=== PATIENT | female | born 1935 | race African-American/Black ===

== ENCOUNTER 2020-12-05 21:01 | Inpatient (IN) | payer SELFPAY ==
--- NOTE | ~2020-12-05 | XR_ITS ---
XR chest 1V DATE: 12/05/2020 22:25 INDICATION: Fever. Weakness for 2 days. TECHNIQUE: AP chest COMPARISON: None FINDINGS: Cardiomegaly. There is left perihilar and lower lung infiltrate and right basilar infiltrat e or atelectasis. There is mild elevation of the right leaf of the diaphragm. No pleural effusion is evident. No pneumo thorax. Diffuse osteopenia. There is bilateral excretion of intravenous contrast material by the kidneys. IMPRESSION: Left perihilar and bilateral lower lung infiltrates Reviewed, dictated and finalized at location A.
--- NOTE | ~2020-12-05 | CT_ITS ---
EXAMINATION: CT chest abdomen pelvis wo con DATE: 12/09/2020 18:17 INDICATION: Costovertebral angle pain. TECHNIQUE: Computed tomography (CT) of the chest, abdomen, and pelvis was performed without intraveno us contrast. Automated exposure control and iterative reconstruction technique were employed. The dos e-length product was 1305.21 mGy-cm. COMPARISON: CT abdomen and pelvis 12/05/2020 FINDINGS: CHEST CT: The lungs demonstrate mild atelectasis. Motion artifact mildly decreases sensitivity. There is a trac e left pleural effusion. Cardiomegaly is noted. There are calcifications of aortic valve. No pericard ial effusion. There is mild thoracic spondylosis. There is mild chronic height loss of T12 vertebral body. ABDOMEN/PELVIS CT: There is an 8 mm cyst in the liver. The gallbladder, spleen, pancreas, adrenal glands, and kidneys ar e normal. There is no urolithiasis. There are no dilated loops of bowel. The appendix is normal. The stomach is distended. There are no pathologically enlarged lymph nodes. There is no free intraperiton eal fluid. There is mild lumbar spondylosis. IMPRESSION: 1. Cardiomegaly. Reviewed, dictated and finalized at location A. IMPRESSION: 1. Cardiomegaly.
--- NOTE | ~2020-12-05 | CT_ITS ---
EXAMINATION: CT abdomen pelvis w con DATE: 12/05/2020 22:17 INDICATION: Generalized abdominal pain. Fever. TECHNIQUE: Computed tomography (CT) of the abdomen and pelvis was performed with 100 cc Omnipaque 350 intravenous contrast. Automated exposure control and iterative reconstruction technique were employe d. Exam dose: 1058.26 mGy-cm total exam DLP. COMPARISON: None. FINDINGS: There is mild discoid atelectasis or scarring at the base of the lingula and in the middle lobe. The Cardiomegaly. No pericardial or pleural effusion. The liver, gallbladder, spleen, pancreas, bile ducts and pancreatic duct and adrenal glands as well a s the kidneys are unremarkable. The urinary bladder is unremarkable. Uterus and adnexal areas are unr emarkable. There is atherosclerotic calcification but normal caliber of the abdominal aorta. No intraperitoneal or retroperitoneal or pelvic mass lesion or adenopathy or ascites. Occasional small bowel air-fluid levels within the fluid distended small bowel segments without dilat ation. Consider enteritis, mild adynamic ileus. No bowel wall thickening, pneumatosis or intraperiton eal free air. Osteitis pubis. Diffuse osteopenia. Mild compression fracture of T12 IMPRESSION: Cardiomegaly Nondilated fluid containing small bowel and occasional small bowel air-fluid levels, which may be sec ondary to enteritis or mild adynamic ileus; no bowel obstruction or free air is detected. Consider co rrelation with serum lactic acid to exclude ischemic bowel. Reviewed, dictated and finalized at Location [facility]. Reviewed, dictated and finalized at location A. IMPRESSION: Cardiomegaly Nondilated fluid containing small bowel and occasional small bowel air-fluid le vels, which may be secondary to enteritis or mild adynamic ileus; no bowel obst ruction or free air is detected. Consider correlation with serum lactic acid to exclude ischemic bowel.
--- NOTE | ~2020-12-05 | CT_ITS ---
EXAMINATION: CT brain wo con DATE: 12/05/2020 22:14 INDICATION: Mental status change. Generalized paresis. TECHNIQUE: Computed tomography (CT) of the head was performed without intravenous contrast. The mA wa s adjusted according to patient size. Iterative reconstruction technique was employed. Exam dose: 52 9.67 mGy-cm total exam DLP. COMPARISON: None FINDINGS: Bilateral carotid siphon internal carotid artery calcifications. There is nonspecific diminished attenuation of the subcortical and periventricular cerebral white mat ter, likely due to chronic small vessel ischemic changes. There is central and cortical cerebral and cerebellar atrophy. No intracranial mass lesion or hemorrhage, midline shift or mass effect effect. No cerebrovascular ac cident is evident. No subdural or epidural hematoma is detected. Included paranasal sinuses and mastoid air cells are unremarkable. No fracture or bone destruction of the cranial vault. IMPRESSION: Cerebral atherosclerosis and chronic small vessel ischemic changes of cerebral white mat ter Cerebral and cerebellar atrophy No acute intracranial finding Reviewed, dictated and finalized at Location A. Reviewed, dictated and finalized at location A. IMPRESSION: Cerebral atherosclerosis and chronic small vessel ischemic changes of cerebral white matter Cerebral and cerebellar atrophy No acute intracranial finding
[2020-12-05 21:13] VITALS: BP 145/85; PULSE 143; RESP 24; TEMP 38.3; O2SAT 94
--- NOTE | 2020-12-05 21:16 | ECG_ITS ---
Measurements Intervals [place] Rate: 144 P: 50 [place]: 139 QRS: 11 QRSD: 92 T: 64 QT: 339 QTc: 526 Interpretive Statements SINUS TACHYCARDIA, POSSIBLE ATRIAL FLUTTER BASELINE ARTIFACT- I, II, III, AVR, AVL, AVF, V1-V6 ABNORMAL ECG Electronically Signed On 12-06-2020 6:54:56 CDT by Fredo Lynn D.O.
[2020-12-05] MEDS: ONDANSETRON INJ 4 MG/2 ML VIAL IV PUSH (21:40)
[2020-12-05] MEDS: SODIUM CHLORIDE 0.9% IV 1,000 ML 999 ML IV CONT ×2 (21:40)
[2020-12-05 21:42] LABS: Basophils Percent Auto 0.4 % (0.2-1.2); Eosinophils Percent Auto 0.1 % (0-4.4); Hematocrit 39.4 % (37.0-47.0); Hemoglobin 13.5 g/dL (12.0-15.0); Immature Granulocyte Absolute 0.04 K/mm3 (0.00-0.031); Immature Granulocyte Percent A 0.4 % (0-0.5); Lymphocytes Absolute Auto 2.06 K/mm3 (0.9-3.2); Lymphocytes Percent Auto 22.4 % (18.3-44.2); Mean Corpuscular HGB Conc 34.3 g/dl (32-36); Mean Corpuscular Hemoglobin 27.3 pg (26-34); Mean Corpuscular Volume 79.6 fl (80-100); Mean Platelet Volume 10.5 fl (7.4-10.4); Monocytes Absolute Auto 0.9 K/mm3 (0.1-0.6); Monocytes Percent Auto 9.4 % (2.6-8.5); Neutrophils Absolute Auto 6.2 K/mm3 (1.3-6.7); Neutrophils Percent Auto 67.3 % (45.5-73.1); Platelet Count Result 198 k/mm3 (150-375); Red Blood Count 4.95 M/mm3 (4.2-5.4); Red Cell Distribution Width 14.2 % (11.5-14.5); White Blood Count 9.2 K/mm3 (4.5-10.0)
[2020-12-05 21:48] LABS: Alveolar/Arterial O2 Gradient 41.2 mmHg; Base Excess ABG 2.8 mEq/l (+/-2.0); Fractional Inspired Oxygen 21 %; HCO3 ABG 27.1 mEq/l (22.0-26.0); Oxygen Content ABG 16.8 %vol (16.0-22.0); Oxygen Saturation ABG 91.8 % (95.0-100.0); Oxyhemoglobin 89.3 % THb (90.0-100.0); PCO2 ABG 40.7 mmHg (35.0-45.0); PO2 ABG 59.8 mmHg (80.0-100.0); PO2 FiO2 Ratio Arterial Blood 2.85 %; Total Hemoglobin 13.4 g/dL (12.0-18.0); pH ABG 7.442 (7.350-7.450)
[2020-12-05 21:49] LABS: Device ROOM AIR; Modified Allen's Test Pass; Site Drawn RIGHT RADIAL
[2020-12-05 21:49] LABS: Add Urine Microscopic? YES; Appearance Urine Cloudy (Clear); Bacteria Urine 1+ /hpf; Bilirubin Urine Negative (Negative); Blood Urine 1+ (Negative); Color Urine Yellow (Yellow); Glucose Urine UA Negative (Negative); Ketones Urine Negative (Negative); Leukocyte Esterase Ur 2+ LEU/UL (Negative); Nitrate Urine Positive (Negative); Protein Urine 2+ mg/dL (Negative); Specific Grav Ur 1.012 (1.001-1.035); WBC Urine 51-75 /hpf
[2020-12-05 21:52] LABS: Alanine Aminotransferase 18 U/L (4-35); Albumin Level 4.4 g/dL (3.5-5.1); Alkaline Phosphatase 78 U/L (38-126); Anion Gap 9 mmol/L (8-16); Aspartate Amino Transferase 27 U/L (14-36); Bilirubin,Total 0.4 mg/dL (0.2-1.3); Blood Urea Nitrogen 15 mg/dL (7-17); Calcium 9.5 mg/dL (8.4-10.2); Carbon Dioxide 28 mmol/L (22-30); Chloride 102 mmol/L (98-107); Estimated CRCL calculation 52 ml/min; Estimated Glomerular Filt Rate > 60; Glucose 124 mg/dL (65-105); Lipase 50 U/L (23-300); Magnesium 1.6 mg/dL (1.6-2.3); Potassium 4.2 mmol/L (3.4-5.0); Sodium 139 mmol/L (137-145)
[2020-12-05 21:53] LABS: Lactic Acid Reflex 1.1 mmol/L (0.7-2.1)
[2020-12-05 22:05] LABS: Troponin I 0.035 ng/mL (0.000-0.034)
[2020-12-05 22:27] VITALS: BP 190/102; PULSE 137; RESP 20; TEMP 37.3; O2SAT 95
--- NOTE | 2020-12-05 23:38 | ED.GENADULT ---
HPI - General Adult General Chief complaint: Weakness Stated complaint: weakness, confusion Time Seen by Provider: 12/05/20 21:19 History of Present Illness HPI narrative: Patient 85-year-old female presents emerged from with chief complaint of generalized weakness. Patient reports that today she is not feeling well and was not her usual self. Patient had a temperature of 101 and had foul-smelling dark urine. The patient states that symptoms are not improved by anything nor they worsened by anything. Patient reports that her abdomen has been uncomfortable with this. Related Data Allergies Allergy/AdvReac Type Severity Reaction Status Date / Time No Known Allergies Allergy Verified 12/05/20 21:32 Review of Systems Review of Systems: Narrative: A 10 system review of systems was completed on the patient and is negative except for what is stated in the HPI. Nursing and ancillary documentation was reviewed. Exam Narrative: Exam Narrative: GENERAL: Well-appearing, well-nourished, and in no acute distress. HEAD: Normocephalic, atraumatic. EYES: PERRLA and EOMI. ENT: Nares clear, no rhinorrhea or epistaxis. Mucous membranes moist. NECK: Supple. CHEST: Clear to auscultation. No respiratory distress. HEART: Regular rate and rhythm. No murmur heard. Normal peripheral pulses. ABDOMEN: Soft, nontender, nondistended, normal active bowel sounds. EXTREMITIES: Normal range of motion. No edema. SKIN: Warm, dry, no rash. NEURO: No focal deficits. Alert and oriented x3. PSYCH: Normal mood and affect. Course Vital Signs Vital signs: Vital Signs Temperature 38.3 C H 12/05/20 21:13 Pulse Rate 143 H 12/05/20 21:13 Respiratory Rate 24 H 12/05/20 21:13 Blood Pressure 145/85 H 12/05/20 21:13 Pulse Oximetry 94 12/05/20 21:13 Temperature 37.3 C 12/05/20 22:27 Pulse Rate 103 H 12/05/20 23:44 Respiratory Rate 16 12/05/20 23:44 Blood Pressure 174/96 H 12/05/20 23:44 Pulse Oximetry 96 12/05/20 23:44 Medical Decision Making Vital Signs Vital Signs: Vital Signs Temperature 38.3 C H 12/05/20 21:13 Pulse Rate 143 H 12/05/20 21:13 Respiratory Rate 24 H 12/05/20 21:13 Blood Pressure 145/85 H 12/05/20 21:13 Pulse Oximetry 94 12/05/20 21:13 Temperature 37.3 C 12/05/20 22:27 Pulse Rate 103 H 12/05/20 23:44 Respiratory Rate 16 12/05/20 23:44 Blood Pressure 174/96 H 12/05/20 23:44 Pulse Oximetry 96 12/05/20 23:44 Lab Data Result diagrams: 12/05/20 21:34 12/05/20 21:34 Labs: Lab Results 12/05/20 12/05/20 12/05/20 Range/Units 21:34 21:34 21:34 WBC 9.2 (4.5-10.0) K/mm3 RBC 4.95 (4.2-5.4) M/mm3 Hgb 13.5 (12.0-15.0) g/dL Hct 39.4 (37.0-47.0) % MCV 79.6 L (80-100) fl MCH 27.3 (26-34) pg MCHC 34.3 (32-36) g/dl RDW 14.2 (11.5-14.5) % Plt Count 198 (150-375) k/mm3 MPV 10.5 H (7.4-10.4) fl Immature Gran % (Auto) 0.4 (0-0.5) % Neut % (Auto) 67.3 (45.5-73.1) % Lymph % (Auto) 22.4 (18.3-44.2) % [place] % (Auto) 9.4 H (2.6-8.5) % Eos % (Auto) 0.1 (0-4.4) % Baso % (Auto) 0.4 (0.2-1.2) % Lymph # (Auto) 2.06 (0.9-3.2) K/mm3 [place] # (Auto) 0.9 H (0.1-0.6) K/mm3 Eos # (Auto) 0.0 (0-0.3) K/mm3 Baso # (Auto) 0.0 (0.0-0.1) K/mm3 Abs Immat Gran (auto) 0.04 H (0.00-0.031) K/mm3 Absolute Neuts (auto) 6.2 (1.3-6.7) K/mm3 Absolute Nucleated RBC 0.0 (0.0-0.012) K/mm3 Nucleated RBC % 0.0 (0.0-0.2) % Sodium 139 (137-145) mmol/L Potassium 4.2 (3.4-5.0) mmol/L Chloride 102 (98-107) mmol/L Carbon Dioxide 28 (22-30) mmol/L Anion Gap 9 (8-16) mmol/L BUN 15 (7-17) mg/dL Creatinine 0.70 (0.7-1.0) mg/dL Estim Creat Clear Calc 52 ml/min Estimated GFR > 60 (59 - ) Glucose 124 H (65-105) mg/dL Lactic Acid (0.7-2.1) mmol/L Calcium 9.5 (8.4-10.2) mg/dL Magnesium 1.6 (1.6-2.3) mg/dL Total Biliru
[2020-12-05 23:44] VITALS: BP 174/96; PULSE 103; RESP 16; O2SAT 96
[2020-12-06] VITALS (15 sets, daily range): BP systolic 149–180; BP diastolic 63–86; PULSE 99–145; RESP 18–22; TEMP 36–37.2; O2SAT 90–97; BMI 28.2
[2020-12-06] MEDS: SODIUM CHLORIDE 0.9% IV 1,000 ML 999 ML IV CONT (00:26)
[2020-12-06] MEDS: SODIUM CHLORIDE 0.9% IV 1,000 ML 125 ML IV CONT ×3 (02:00→18:22)
--- NOTE | 2020-12-06 03:20 | ADMGEN ---
This patient, Rodolfo Varela, was admitted to 2 Medical Room 260-01. Patient/family oriented to hospital policies and general routines including ID bracelet, bed and alarms, visiting hours, pain management, procedures, bathroom and other care routines, personal items, smoking policy, room service/diet, and visiting hours. Information on how to activate the Rapid Response Team has been discussed. Patient/Family are encouraged to report perceived risks to care and to ask questions if they do not understand what they are told or what they should do.
[2020-12-06] MEDS: ACETAMINOPHEN 325 MG TABLET 650 MG PO (08:10)
[2020-12-06 08:18] LABS: Glucose Point of Care 114 mg/dl (65-105)
[2020-12-06 12:11] LABS: Glucose Point of Care 140 mg/dl (65-105)
--- NOTE | 2020-12-06 15:25 | PM.IMHP ---
H&P: HPI History of Present Illness Date/Time: 12/06/20 15:25 Chief Complaint: Weakness, confusion, and back pain Narrative: Patient is an 85 year old female with a past medical history of HTN, P. neuropathy, and DM that presented to the ED with complaints of left flank pain, weakness, and confusion. Per her son the patient has not been really responsive or herself for the last couple of days. She has been complaining of back pain on the left flank, but has not had a BM for the last couple of days with either. Her son stated that it was so bad that she was unable to stand or would even walk. It was stated that she did have a fever yesterday and that she vomited about 3 days ago. She also complained that she was having chest pain that would radiate to the left kidney. He said that she denied shortness of breath, nausea, diarrhea, tingling, abdominal pain, urinary dysfunction, headache, or syncope. He did say that she fell about 4 days ago while in the bathroom. She did say that she was feeling better, except for the pain in her left flank. This patient speaks Swahili and an booking manager has not been established at this time. Review of Systems Review of Systems: All systems reviewed & are unremarkable except as noted in HPI and below PMFSH Past Medical History Medical History (Updated 12/07/20 @ 12:31 by MINDA Foley) Alzheimers disease Anxiety Diabetes 1.5, managed as type 2 Hypertension Memory loss Peripheral neuropathy Family History Family History (Updated 12/06/20 @ 15:38 by MINDA Foley) Son Diabetes mellitus Heart disease Hypertension Social History Social History (Updated 12/06/20 @ 15:40 by MINDA Foley) Social History: Patient would like to be a full code and her son Edouard Crandall is her surrogate. She lives with her and there are 13 siblings. No pets in the home. Smoking status: Never smoker Alcohol intake: never Substance use: never Living arrangements: with family Occupation/Education: other Gender identity (if verbalized by the patient): Female Sexual Orientation (if Verbalized by the Patient): Straight or Heterosexual Spiritual care concerns: No Meds Home Medications and Allergies Home Medications Medication Instructions Recorded Confirmed Type amlodipine 2.5 mg PO DAILY 12/06/20 12/06/20 History gabapentin 100 mg PO TID 12/06/20 12/06/20 History metformin 1,000 mg PO BIDWM 12/06/20 12/06/20 History Allergies Allergy/AdvReac Type Severity Reaction Status Date / Time No Known Allergies Allergy Verified 12/06/20 03:19 Vital Signs Vital Signs - 24 hr 12/05/20 21:13 12/05/20 22:27 12/05/20 23:44 Temperature 38.3 C H 37.3 C Pulse Rate 143 H 137 H 103 H Respiratory Rate 24 H 20 16 Blood Pressure 145/85 H 190/102 H 174/96 H Pulse Oximetry 94 95 96 12/06/20 01:19 12/06/20 03:27 12/06/20 04:00 Temperature 37.2 C 36.0 C L Pulse Rate 99 99 103 H Respiratory Rate 22 H 18 Blood Pressure 158/86 H 149/67 H Pulse Oximetry 97 93 12/06/20 05:22 12/06/20 08:00 12/06/20 08:10 Temperature 36.6 C Pulse Rate 108 H 110 H 110 H Respiratory Rate 18 18 Blood Pressure 152/85 H Pulse Oximetry 93 91 12/06/20 08:26 12/06/20 12:00 Temperature Pulse Rate 106 H Respiratory Rate Blood Pressure Pulse Oximetry 90 Exam Const: General: cooperative, comfortable, no acute distress, well developed, alert, awake, ill appearing and tired appearing Nutritional Appearance: average body habitus, well nourished and obese Orientation/consciousness: Other orientation findings (unknown due to language barrier ) Limitations: language barrier HENMT: Head: normal to inspection Ears: hearing grossly normal bilaterally General nose exam: Normal external nose present Mouth: Yes Normal oral and palatal mucosa present, Yes lip normal and Yes tongue normal Teeth and gingiva: abnormal tooth and associated gingiva and poo
[2020-12-06 16:36] LABS: Glucose Point of Care 124 mg/dl (65-105)
[2020-12-06 16:57] LABS: Basophils Percent Auto 0.3 % (0.2-1.2); Eosinophils Percent Auto 0.4 % (0-4.4); Hematocrit 36.3 % (37.0-47.0); Hemoglobin 11.9 g/dL (12.0-15.0); Immature Granulocyte Absolute 0.03 K/mm3 (0.00-0.031); Immature Granulocyte Percent A 0.3 % (0-0.5); Lymphocytes Absolute Auto 1.76 K/mm3 (0.9-3.2); Lymphocytes Percent Auto 19.5 % (18.3-44.2); Mean Corpuscular HGB Conc 32.8 g/dl (32-36); Mean Corpuscular Hemoglobin 27.1 pg (26-34); Mean Corpuscular Volume 82.7 fl (80-100); Mean Platelet Volume 10.6 fl (7.4-10.4); Monocytes Absolute Auto 0.9 K/mm3 (0.1-0.6); Monocytes Percent Auto 9.8 % (2.6-8.5); Neutrophils Absolute Auto 6.3 K/mm3 (1.3-6.7); Neutrophils Percent Auto 69.7 % (45.5-73.1); Platelet Count Result 159 k/mm3 (150-375); Red Blood Count 4.39 M/mm3 (4.2-5.4); Red Cell Distribution Width 14.6 % (11.5-14.5)
[2020-12-06] MEDS: polyethylene glycoL 3350 17 GM POWD.PACK PO (17:03)
[2020-12-06] MEDS: BISACODYL 5 MG TABLET EC PO (17:03)
[2020-12-06 17:10] LABS: Alanine Aminotransferase 18 U/L (4-35); Albumin Level 3.5 g/dL (3.5-5.1); Alkaline Phosphatase 57 U/L (38-126); Anion Gap 8 mmol/L (8-16); Aspartate Amino Transferase 26 U/L (14-36); Bilirubin,Total 0.2 mg/dL (0.2-1.3); Blood Urea Nitrogen 12 mg/dL (7-17); Calcium 8.2 mg/dL (8.4-10.2); Carbon Dioxide 26 mmol/L (22-30); Chloride 107 mmol/L (98-107); Estimated CRCL calculation 52 ml/min; Estimated Glomerular Filt Rate > 60; Glucose 135 mg/dL (65-105); Potassium 3.9 mmol/L (3.4-5.0); Sodium 141 mmol/L (137-145)
[2020-12-06] MEDS: GABAPENTIN 100 MG CAPSULE PO (18:23)
--- NOTE | 2020-12-06 18:45 | ECG_ITS ---
Measurements Intervals [place] Rate: 146 P: 46 [place]: 125 QRS: 52 QRSD: 88 T: 25 QT: 329 QTc: 514 Interpretive Statements SINUS TACHYCARDIA, POSSIBLE ATRIAL FLUTTER POSSIBLE LEFT VENTRICULAR HYPERTROPHY NONSPECIFIC ST & T-WAVE ABNORMALITY- LATERAL LEADS BASELINE ARTIFACT- I, III, AVR, AVL, AVF ABNORMAL ECG Electronically Signed On 12-06-2020 20:11:48 CDT by Fredo Lynn D.O.
--- NOTE | 2020-12-06 18:58 | WPDPN ---
Objective Data Vital Signs Vital Signs: Vital Signs - 24 hr 12/05/20 21:13 12/05/20 22:27 12/05/20 23:44 Temperature 101 F H 99.2 F Pulse Rate 143 H 137 H 103 H Respiratory Rate 24 H 20 16 Blood Pressure 145/85 H 190/102 H 174/96 H Pulse Oximetry 94 95 96 12/06/20 01:19 12/06/20 03:27 12/06/20 04:00 Temperature 99.0 F 96.8 F L Pulse Rate 99 99 103 H Respiratory Rate 22 H 18 Blood Pressure 158/86 H 149/67 H Pulse Oximetry 97 93 12/06/20 05:22 12/06/20 08:00 12/06/20 08:10 Temperature 97.9 F Pulse Rate 108 H 110 H 110 H Respiratory Rate 18 18 Blood Pressure 152/85 H Pulse Oximetry 93 91 12/06/20 08:26 12/06/20 12:00 12/06/20 15:10 Temperature 97.3 F L Pulse Rate 106 H 106 H Respiratory Rate 18 Blood Pressure 163/73 H Pulse Oximetry 90 94 12/06/20 16:00 Temperature Pulse Rate 108 H Respiratory Rate Blood Pressure Pulse Oximetry Intake/Output Intake/Output: Intake & Output 12/03/20 12/04/20 12/05/20 12/06/20 23:59 23:59 23:59 23:59 Intake Total 1150 4960 Output Total 300 1800 Balance 850 3160 Meds/Results Medications: Active Medications Generic Name Dose Route Start Last Admin Trade Name Freq PRN Reason Stop Dose Admin Acetaminophen 650 mg 12/06/20 00:28 12/06/20 08:10 Acetaminophen 325 Mg Tablet PO 650 mg Q4H PRN Administration Mild Pain (1-3) or Fever Amlodipine Besylate 2.5 mg 12/07/20 09:00 Amlodipine Besylate 2.5 Mg Tablet PO DAILY RIKA Bisacodyl 5 mg 12/07/20 09:00 Bisacodyl 5 Mg Tablet Ec PO QAM RIKA Dextrose 12.5 gm 12/06/20 16:11 Dextrose 50% 25 Gm/50 Ml Syringe IV PUSH PRN PRN Hypoglycemia Protocol Enoxaparin Sodium 40 mg 12/07/20 09:00 Enoxaparin 40 Mg/0.4 Ml Syringe SUB-Q DAILY RIKA Gabapentin 100 mg 12/06/20 17:00 06/18/21 18:23 Gabapentin 100 Mg Capsule PO 100 mg TID RIKA Administration Glucagon 1 mg 12/06/20 16:11 Glucagon For Inj 1 Mg Vial IM PRN PRN Hypoglycemia Protocol Glucose 15 gm 12/06/20 16:11 Glucose Oral Gel 15 Gm Of Glucse In 37.5 Gm Tube PO PRN PRN Hypoglycemia Protocol Ceftriaxone Sodium/Dextrose 1 gm in 50 mls @ 100 mls/hr 12/06/20 23:00 Rocephin 1 Gm/D5w 50 Ml IVPB Q24H RIKA Sodium Chloride 1,000 mls @ 125 mls/hr 12/06/20 00:30 12/06/20 18:22 Normal Saline Iv IV CONT 125 mls/hr .Q8H RIKA Administration Dextrose 1,000 mls @ 100 mls/hr 12/06/20 16:11 Dextrose 5% 1,000 Ml IVPB PRN PRN Hypoglycemia Protocol Insulin Aspart 2 - 5 units 12/06/20 17:00 12/06/20 16:33 Insulin Aspart (*Bkc) 100 Units/Ml SUB-Q Not Given TIDWM [facility] Protocol Ondansetron HCl 4 mg 12/06/20 00:28 Ondansetron Inj 4 Mg/2 Ml Vial IV PUSH Q4H PRN Nausea Polyethylene Glycol 17 gm 12/07/20 09:00 Polyethylene Glycol 3350 17 Gm Powd.Pack PO QAM [facility] Radiology Results: ITS Impressions Head CT 12/05/20 22:37 IMPRESSION: Cerebral atherosclerosis and chronic small vessel ischemic changes of cerebral white matter Cerebral and cerebellar atrophy No acute intracranial finding Chest X-Ray 12/05/20 22:40 IMPRESSION: Left perihilar and bilateral lower lung infiltrates ADDENDUM: 12/05/20 2245 Upon comparison with subsequent CT abdomen pelvis examination, there is minimal atelectasis at the lung bases but no consolidation. Abdomen/Pelvis CT 12/05/20 22:44 IMPRESSION: Cardiomegaly Nondilated fluid containing small bowel and occasional small bowel air-fluid levels, which may be secondary to enteritis or mild adynamic ileus; no bowel obstruction or free air is detected. Consider correlation with serum lactic acid to exclude ischemic bowel. Labs Labs: Laboratory Results - last 24 hr 12/05/20 12/05/20 12/05/20 21:34 21:34 21:34 WBC 9.2 RBC 4.95 Hgb 13.5 Hct 39.4 MCV 79.6 L MCH 27.3
[2020-12-06] MEDS: METOPROLOL TARTRATE 25 MG TABLET PO (19:36)
[2020-12-06] MEDS: SODIUM CHLORIDE 0.9% IV 1,000 ML 70 ML IV CONT (19:57)
[2020-12-06] MEDS: amLODIPine BESYLATE 2.5 MG TABLET PO (21:28)
[2020-12-06 23:26] LABS: Glucose Point of Care 135 mg/dl (65-105)
[2020-12-06] MEDS: hydrALAZINE HCL 20 MG/ML VIAL 10 MG IV PUSH (23:47)
[2020-12-07] VITALS (13 sets, daily range): BP systolic 115–182; BP diastolic 55–88; PULSE 77–133; RESP 16–20; TEMP 36.2–37.2; O2SAT 92–96
--- NOTE | 2020-12-07 | ECHO_ITS ---
Patient Info Name: Rodolfo Varela Age: 85 years : 1935 Gender: Female Ht: 64 in Wt: 164 lbs BSA: 1.85 m2 HR: 75 bpm BP: 152 / 73 mmHg Heart Rhythm: Sinus Rhythm Technical Quality: Good Exam Date: 12/07/2020 1:13 PM Exam Location: [facility] Pulmonary Exam Room: 260 Patient Status: Inpatient Admit Date: 12/06/2020 Staff Ordering Physician: Omar Leyva Research And Development Researcher: Arlene Fuentes RDCS Attending Provider: Debbie Verma DO Referring Physician: Gordon MARTINEZ; Exam Type: CA echo doppler color flow Study Info Indications - fluid overload Complete two-dimensional, color flow and Doppler transthoracic echocardiogram is performed. Summary 1. Complete two-dimensional, color flow and Doppler transthoracic echocardiogram is performed. 2. Left ventricular chamber dimension is normal. 3. Left ventricular systolic function is mildly reduced, estimated at 40-45%. 4. There is moderately increased left ventricular wall thickness. 5. The left ventricular diastolic function is grade I diastolic dysfunction. 6. Global longitudinal strain is abnormal at -9 %. 7. The basal inferior wall is akinetic. 8. The inferoseptal wall, apical inferior wall, mid inferior wall, basal anterolateral wall, mid anterolateral wall, basal inferolateral wall, and mid inferolateral wall are hypokinetic. 9. Left atrial chamber dimension is mildly enlarged. 10. There is mild aortic valve calcification. 11. There is moderate aortic valve sclerosis. 12. There is mild mitral valve regurgitation. 13. There is mild tricuspid valve regurgitation. Left Ventricle Left ventricular chamber dimension is normal. Left ventricular systolic function is mildly reduced, estimated at 40-45%. There is moderately increased left ventricular wall thickness. The left ventricular diastolic function is grade I diastolic dysfunction. Global longitudinal strain is abnormal at -9 %. The basal inferior wall is akinetic. The inferoseptal wall, apical inferior wall, mid inferior wall, basal anterolateral wall, mid anterolateral wall, basal inferolateral wall, and mid inferolateral wall are hypokinetic. All other willard appear normal. Right Ventricle Right ventricular chamber dimension is normal. Right ventricular systolic function is normal. Left Atria Left atrial chamber dimension is mildly enlarged. Right Atria Right atrial chamber dimension is normal. Atrial Septum Intact interatrial septum visualized by color flow imaging. Aortic Valve The aortic valve is trileaflet. There is moderate aortic valve sclerosis. There is no aortic valve stenosis. There is trace aortic valve regurgitation. There is mild aortic valve calcification. Pulmonic Valve The pulmonic valve is normal. There is no pulmonic valve stenosis. There is trace pulmonic regurgitation. Mitral Valve The mitral valve has normal leaflets. There is no mitral valve stenosis. There is mild mitral valve regurgitation. Tricuspid Valve The tricuspid valve leaflets are normal. There is no significant tricuspid valve stenosis. There is mild tricuspid valve regurgitation. No pulmonary hypertension, estimated pulmonary arterial systolic pressure is 30 mmHg. Pericardium/Pleural The pericardium appears normal. There is trivial pericardial effusion. Inferior Vena Cava Normal inferior vena cava with <50% collapse upon inspiration consistent with elevated right atrial pressure, 10 mmHg. Aorta The aort
[2020-12-07] MEDS: METOPROLOL TARTRATE INJ 5 MG/5 ML VIAL IV PUSH (01:23)
[2020-12-07 06:12] LABS: Anion Gap 5 mmol/L (8-16); Blood Urea Nitrogen 9 mg/dL (7-17); Calcium 8.3 mg/dL (8.4-10.2); Carbon Dioxide 29 mmol/L (22-30); Chloride 107 mmol/L (98-107); Estimated CRCL calculation 70 ml/min; Estimated Glomerular Filt Rate > 60; Glucose 113 mg/dL (65-105); Potassium 3.5 mmol/L (3.4-5.0); Sodium 141 mmol/L (137-145)
[2020-12-07 06:13] LABS: Basophils Percent Auto 0.4 % (0.2-1.2); Eosinophils Absolute Auto 0.1 K/mm3 (0-0.3); Eosinophils Percent Auto 0.6 % (0-4.4); Hematocrit 35.4 % (37.0-47.0); Hemoglobin 11.9 g/dL (12.0-15.0); Immature Granulocyte Absolute 0.04 K/mm3 (0.00-0.031); Immature Granulocyte Percent A 0.5 % (0-0.5); Lymphocytes Absolute Auto 1.91 K/mm3 (0.9-3.2); Lymphocytes Percent Auto 23.3 % (18.3-44.2); Mean Corpuscular HGB Conc 33.6 g/dl (32-36); Mean Corpuscular Volume 80.3 fl (80-100); Mean Platelet Volume 10.7 fl (7.4-10.4); Monocytes Percent Auto 11.8 % (2.6-8.5); Neutrophils Absolute Auto 5.2 K/mm3 (1.3-6.7); Neutrophils Percent Auto 63.4 % (45.5-73.1); Platelet Count Result 160 k/mm3 (150-375); Red Blood Count 4.41 M/mm3 (4.2-5.4); Red Cell Distribution Width 13.9 % (11.5-14.5); White Blood Count 8.2 K/mm3 (4.5-10.0)
[2020-12-07 06:29] LABS: Troponin I 0.126 ng/mL (0.000-0.034)
[2020-12-07 07:55] LABS: Glucose Point of Care 111 mg/dl (65-105)
[2020-12-07 08:36] LABS: NT Pro B Type Natriuretic Pept 1400 pg/mL (5-100)
[2020-12-07] MEDS: SODIUM CHLORIDE 0.9% IV 1,000 ML 70 ML IV CONT (09:37)
[2020-12-07] MEDS: polyethylene glycoL 3350 17 GM POWD.PACK PO (09:40)
[2020-12-07] MEDS: BISACODYL 5 MG TABLET EC PO (09:40)
[2020-12-07] MEDS: METOPROLOL TARTRATE 50 MG TAB PO ×2 (09:41→21:51)
[2020-12-07] MEDS: ENOXAPARIN 40 MG/0.4 ML SYRINGE SUB-Q (09:41)
[2020-12-07] MEDS: GABAPENTIN 100 MG CAPSULE PO ×3 (09:42→16:43)
[2020-12-07] MEDS: amLODIPine BESYLATE 2.5 MG TABLET PO (09:42)
[2020-12-07] MEDS: FUROSEMIDE INJ 40 MG/4 ML VIAL 20 MG IV PUSH (09:43)
[2020-12-07 11:16] LABS: Troponin I 0.115 ng/mL (0.000-0.034)
[2020-12-07] MEDS: ACETAMINOPHEN 325 MG TABLET 650 MG PO ×2 (11:22→22:03)
--- NOTE | 2020-12-07 11:44 | P.PNIM_ITS ---
Progress Note: A&P Assessment and Plan (1) Cardiac arrhythmia: Qualifiers: Arrhythmia type: supraventricular tachycardia Qualified Code(s): I47.1 - Supraventricular tachycardia Code(s): I49.9 - Cardiac arrhythmia, unspecified Status: Acute Assessment and Plan: * Heart rate got as high as 150 and was sustained * EKG showed sinus tach or possible 1:1 flutter * Sinus tach on the monitor this am * Heart rate is 90 after metoprolol 50mg this am * Trend heart rate and rhythm (2) Abdominal pain: Qualifiers: Abdominal location: left lower quadrant Qualified Code(s): R10.32 - Left lower quadrant pain Code(s): R10.9 - Unspecified abdominal pain Status: Acute Assessment and Plan: * Patient complains of left flank pain * CVA tenderness * CT shows possible ileus * No BM in few days * Miralax and Dulcolax started * WBC trending down 8.2 today (3) Acute UTI: Code(s): N39.0 - Urinary tract infection, site not specified Status: Acute Assessment and Plan: * Family complained that she had dark and malodorous urine * Urine sample showed nitrate positive, WBC 51-75, Leukocyte esterase 2+ * Started on ceftriaxone 1 gm Q24hr * Urine culture pending * Will tailor antibiotics when cultures come back (4) Elevated troponin: Code(s): R77.8 - Other specified abnormalities of plasma proteins Status: Acute Assessment and Plan: * Slightly elevated Troponin peaked at 0.126 * EKG sinus tach possible a flutter * Tele monitor- SR 80 * Trend down * Echo pending * BNP 1400 * Most likely to be from the elevated BNP, cardiac arrhythmia changes, and tachycardiac event rather than demand ischemia (5) Hypertension: Qualifiers: Hypertension type: essential hypertension Qualified Code(s): I10 - Essential (primary) hypertension Code(s): I10 - Essential (primary) hypertension Status: Acute Assessment and Plan: * Current blood pressure 163/73 * Continue home amlodipine 2.5mg PO daily * Started metoprolol 50mg PO BID * Trend blood pressure * Adjust medications as needed (6) Diabetes 1.5, managed as type 2: Code(s): E13.9 - Other specified diabetes mellitus without complications Status: Acute Assessment and Plan: * Patient on metformin at home * Will hold metformin for now * Current glucose is 111 * Accu checks AC/HS * Glucose as high as 140 * Sliding scale * Hypoglycemia protocol (7) Peripheral neuropathy: Qualifiers: Peripheral neuropathy type: polyneuropathy, unspecified Qualified Code(s): G62.9 - Polyneuropathy, unspecified Code(s): G62.9 - Polyneuropathy, unspecified Status: Acute Assessment and Plan: * Continue home Gabapentin 100mg PO TID (8) Anxiety: Code(s): F41.9 - Anxiety disorder, unspecified Status: Acute Assessment and Plan: * Calm at this time * Monitor for symptoms (9) Constipation: Qualifiers: Constipation type: unspecified constipation type Qualified Code(s): K59.00 - Constipation, unspecified Code(s): K59.00 - Constipation, unspecified Status: Acute Assessment and Plan: * No bowel movement for a few days * will start Miralax and Doculax 5mg now and in the am until BM * CT shows possible ileus * Still no
--- NOTE | 2020-12-07 11:44 | PM.IMPN ---
Progress Note: A&P Assessment and Plan (1) Cardiac arrhythmia: Qualifiers: Arrhythmia type: supraventricular tachycardia Qualified Code(s): I47.1 - Supraventricular tachycardia Code(s): I49.9 - Cardiac arrhythmia, unspecified Status: Acute Assessment and Plan: Heart rate got as high as 150 and was sustained EKG showed sinus tach or possible 1:1 flutter Sinus tach on the monitor this am Heart rate is 90 after metoprolol 50mg this am Trend heart rate and rhythm (2) Abdominal pain: Qualifiers: Abdominal location: left lower quadrant Qualified Code(s): R10.32 - Left lower quadrant pain Code(s): R10.9 - Unspecified abdominal pain Status: Acute Assessment and Plan: Patient complains of left flank pain CVA tenderness CT shows possible ileus No BM in few days Miralax and Dulcolax started WBC trending down 8.2 today (3) Acute UTI: Code(s): N39.0 - Urinary tract infection, site not specified Status: Acute Assessment and Plan: Family complained that she had dark and malodorous urine Urine sample showed nitrate positive, WBC 51-75, Leukocyte esterase 2+ Started on ceftriaxone 1 gm Q24hr Urine culture pending Will tailor antibiotics when cultures come back (4) Elevated troponin: Code(s): R77.8 - Other specified abnormalities of plasma proteins Status: Acute Assessment and Plan: Slightly elevated Troponin peaked at 0.126 EKG sinus tach possible a flutter Tele monitor- SR 80 Trend down Echo pending BNP 1400 Most likely to be from the elevated BNP, cardiac arrhythmia changes, and tachycardiac event rather than demand ischemia (5) Hypertension: Qualifiers: Hypertension type: essential hypertension Qualified Code(s): I10 - Essential (primary) hypertension Code(s): I10 - Essential (primary) hypertension Status: Acute Assessment and Plan: Current blood pressure 163/73 Continue home amlodipine 2.5mg PO daily Started metoprolol 50mg PO BID Trend blood pressure Adjust medications as needed (6) Diabetes 1.5, managed as type 2: Code(s): E13.9 - Other specified diabetes mellitus without complications Status: Acute Assessment and Plan: Patient on metformin at home Will hold metformin for now Current glucose is 111 Accu checks AC/HS Glucose as high as 140 Sliding scale Hypoglycemia protocol (7) Peripheral neuropathy: Qualifiers: Peripheral neuropathy type: polyneuropathy, unspecified Qualified Code(s): G62.9 - Polyneuropathy, unspecified Code(s): G62.9 - Polyneuropathy, unspecified Status: Acute Assessment and Plan: Continue home Gabapentin 100mg PO TID (8) Anxiety: Code(s): F41.9 - Anxiety disorder, unspecified Status: Acute Assessment and Plan: Calm at this time Monitor for symptoms (9) Constipation: Qualifiers: Constipation type: unspecified constipation type Qualified Code(s): K59.00 - Constipation, unspecified Code(s): K59.00 - Constipation, unspecified Status: Acute Assessment and Plan: No bowel movement for a few days will start Miralax and Doculax 5mg now and in the am until BM CT shows possible ileus Still no BM today (10) Atelectasis, bilateral: Code(s): J98.11 - Atelectasis Status: Acute Assessment and Plan: Chest xray showed Left perihilar and bilateral lower lung infiltrates CT showed atelectasis WBC is 8.2 Neutrophils are normal Blood cultures pending Patient does not have shortness of breath Trend SPO2 Patient on room air currently IS (11) Fluid overload: Qualifiers: Hypervolemia type: other Qualified Code(s): E87.79 - Other fluid overload Code(s): E87.70 - Fluid overload, unspecified
[2020-12-07 12:26] LABS: Glucose Point of Care 141 mg/dl (65-105)
[2020-12-07 16:59] LABS: Troponin I 0.154 ng/mL (0.000-0.034)
[2020-12-07 18:02] LABS: Glucose Point of Care 116 mg/dl (65-105)
[2020-12-07 20:52] LABS: Glucose Point of Care 170 mg/dl (65-105)
[2020-12-08] VITALS (12 sets, daily range): BP systolic 124–176; BP diastolic 64–88; PULSE 68–101; RESP 16–20; TEMP 35.9–36.7; O2SAT 93–98
[2020-12-08] MEDS: OLANZapine 2.5 MG TABLET PO (01:45)
[2020-12-08] MEDS: SODIUM CHLORIDE 0.9% IV 1,000 ML 70 ML IV CONT ×2 (02:47→17:24)
[2020-12-08] MEDS: OLANZapine 10 MG INJ VIAL 5 MG IM (03:04)
[2020-12-08] MEDS: WATER, STERILE FOR INJECTION 10 ML VIAL XX (03:09)
[2020-12-08 05:26] LABS: Hematocrit 36.6 % (37.0-47.0); Hemoglobin 11.6 g/dL (12.0-15.0); Mean Corpuscular HGB Conc 31.7 g/dl (32-36); Mean Corpuscular Hemoglobin 26.1 pg (26-34); Mean Corpuscular Volume 82.2 fl (80-100); Mean Platelet Volume 10.4 fl (7.4-10.4); Platelet Count Result 191 k/mm3 (150-375); Red Blood Count 4.45 M/mm3 (4.2-5.4); Red Cell Distribution Width 14.2 % (11.5-14.5)
--- NOTE | 2020-12-08 05:48 | PC.NURSE ---
Addendum entered by Christel Velasquez RN 12/08/20 05:53: pt confused and unable to communicate all her needs due to language barrier and dementia state. Original Note: pt confused and kicking her legs out of bed all mini shifter. Pt STUD DRIVER and RN made several attempts to redirect pt and get pt to stay in her bed. Pt's son came to the floor and requested a sedative to help his mother get some sleep and then left the hospital. Dr Verma was called x2 to get medications. Zyprexa p.o. and IM were administered. Pt did not respond to the medication. Pt was still jumping out of bed every 15 to 20 minutes and requiring 1 to 2 people in the room for most from 1:45 through the rest of shift. Pt conused an
[2020-12-08 05:49] LABS: Alanine Aminotransferase 38 U/L (4-35); Alkaline Phosphatase 73 U/L (38-126); Anion Gap 7 mmol/L (8-16); Aspartate Amino Transferase 40 U/L (14-36); Bilirubin,Total 0.4 mg/dL (0.2-1.3); Blood Urea Nitrogen 14 mg/dL (7-17); Calcium 9.1 mg/dL (8.4-10.2); Carbon Dioxide 28 mmol/L (22-30); Chloride 110 mmol/L (98-107); Estimated CRCL calculation 52 ml/min; Estimated Glomerular Filt Rate > 60; Glucose 130 mg/dL (65-105); Potassium 3.6 mmol/L (3.4-5.0); Sodium 145 mmol/L (137-145)
--- NOTE | 2020-12-08 07:40 | PC.NURSE ---
Pt being aggressive to staff trying to climb through bed rails. Son called and he translated to his mom to stay in bed. Nitish Leyva CANVAS CUTTER notified of her agitation and restlessness and attempts at pulling out her IV and not keeping telemetry on.
[2020-12-08 07:59] LABS: Glucose Point of Care 134 mg/dl (65-105)
--- NOTE | 2020-12-08 08:22 | P.PNIM_ITS ---
Progress Note: A&P Assessment and Plan (1) Acute UTI: Code(s): N39.0 - Urinary tract infection, site not specified Status: Acute Assessment and Plan: * Family complained that she had dark and malodorous urine * Urine sample showed nitrate positive, WBC 51-75, Leukocyte esterase 2+ * Started on ceftriaxone 1 gm Q24hr * Urine culture pending * Will tailor antibiotics when cultures come back (2) Hypertension: Qualifiers: Hypertension type: essential hypertension Qualified Code(s): I10 - Essential (primary) hypertension Code(s): I10 - Essential (primary) hypertension Status: Acute Assessment and Plan: * Current blood pressure 124/88 * Continue home amlodipine 2.5mg PO daily * Started on 50mg Metoprolol PO * Trend blood pressure * Adjust medications as needed (3) Diabetes 1.5, managed as type 2: Code(s): E13.9 - Other specified diabetes mellitus without complications Status: Acute Assessment and Plan: * Patient on metformin at home * Will hold metformin for now * Accu checks AC/HS * Glucose as high as 134 * Sliding scale * Hypoglycemia protocol (4) Peripheral neuropathy: Qualifiers: Peripheral neuropathy type: polyneuropathy, unspecified Qualified Code(s): G62.9 - Polyneuropathy, unspecified Code(s): G62.9 - Polyneuropathy, unspecified Status: Acute Assessment and Plan: * Continue home Gabapentin 100mg PO TID (5) Anxiety: Code(s): F41.9 - Anxiety disorder, unspecified Status: Acute Assessment and Plan: * very rambunxious today * Nursing stated that patient is pulling at medical devices and seems to be confused * It has been noted that it is worse at night * Xanax 0.125mg TID PRN added for further comfort * Monitor for symptoms (6) Constipation: Qualifiers: Constipation type: unspecified constipation type Qualified Code(s): K59.00 - Constipation, unspecified Code(s): K59.00 - Constipation, unspecified Status: Acute Assessment and Plan: * No bowel movement for a few days * will start Miralax and Doculax 5mg now and in the am until BM * Add suppository to help create a BM * CT shows possible ileus (7) Atelectasis, bilateral: Code(s): J98.11 - Atelectasis Status: Acute Assessment and Plan: * Chest xray showed Left perihilar and bilateral lower lung infiltrates * CT showed atelectasis * WBC is 7.0 * Neutrophils are normal * Blood cultures no growth day 1 * Patient does not have shortness of breath * Trend SPO2 * Patient on room air currently * IS (8) Cardiac arrhythmia: Qualifiers: Arrhythmia type: supraventricular tachycardia Qualified Code(s): I47.1 - Supraventricular tachycardia Code(s): I49.9 - Cardiac arrhythmia, unspecified Status: Acute Assessment and Plan: * Heart rate got as high as 150 and was sustained * EKG showed sinus tach or possible 1:1 flutter * Sinus in the 70s on the monitor this am * metoprolol 50mg PO BID * Trend heart rate and rhythm (9) Abdominal pain: Qualifiers: Abdominal location: left lower quadrant Qualified Code(s): R10.32 - Left lower quadrant pain Code(s): R10.9
--- NOTE | 2020-12-08 08:22 | PM.IMPN ---
Progress Note: A&P Assessment and Plan (1) Acute UTI: Code(s): N39.0 - Urinary tract infection, site not specified Status: Acute Assessment and Plan: Family complained that she had dark and malodorous urine Urine sample showed nitrate positive, WBC 51-75, Leukocyte esterase 2+ Started on ceftriaxone 1 gm Q24hr Urine culture pending Will tailor antibiotics when cultures come back (2) Hypertension: Qualifiers: Hypertension type: essential hypertension Qualified Code(s): I10 - Essential (primary) hypertension Code(s): I10 - Essential (primary) hypertension Status: Acute Assessment and Plan: Current blood pressure 124/88 Continue home amlodipine 2.5mg PO daily Started on 50mg Metoprolol PO Trend blood pressure Adjust medications as needed (3) Diabetes 1.5, managed as type 2: Code(s): E13.9 - Other specified diabetes mellitus without complications Status: Acute Assessment and Plan: Patient on metformin at home Will hold metformin for now Accu checks AC/HS Glucose as high as 134 Sliding scale Hypoglycemia protocol (4) Peripheral neuropathy: Qualifiers: Peripheral neuropathy type: polyneuropathy, unspecified Qualified Code(s): G62.9 - Polyneuropathy, unspecified Code(s): G62.9 - Polyneuropathy, unspecified Status: Acute Assessment and Plan: Continue home Gabapentin 100mg PO TID (5) Anxiety: Code(s): F41.9 - Anxiety disorder, unspecified Status: Acute Assessment and Plan: very rambunxious today Nursing stated that patient is pulling at medical devices and seems to be confused It has been noted that it is worse at night Xanax 0.125mg TID PRN added for further comfort Monitor for symptoms (6) Constipation: Qualifiers: Constipation type: unspecified constipation type Qualified Code(s): K59.00 - Constipation, unspecified Code(s): K59.00 - Constipation, unspecified Status: Acute Assessment and Plan: No bowel movement for a few days will start Miralax and Doculax 5mg now and in the am until BM Add suppository to help create a BM CT shows possible ileus (7) Atelectasis, bilateral: Code(s): J98.11 - Atelectasis Status: Acute Assessment and Plan: Chest xray showed Left perihilar and bilateral lower lung infiltrates CT showed atelectasis WBC is 7.0 Neutrophils are normal Blood cultures no growth day 1 Patient does not have shortness of breath Trend SPO2 Patient on room air currently IS (8) Cardiac arrhythmia: Qualifiers: Arrhythmia type: supraventricular tachycardia Qualified Code(s): I47.1 - Supraventricular tachycardia Code(s): I49.9 - Cardiac arrhythmia, unspecified Status: Acute Assessment and Plan: Heart rate got as high as 150 and was sustained EKG showed sinus tach or possible 1:1 flutter Sinus in the 70s on the monitor this am metoprolol 50mg PO BID Trend heart rate and rhythm (9) Abdominal pain: Qualifiers: Abdominal location: left lower quadrant Qualified Code(s): R10.32 - Left lower quadrant pain Code(s): R10.9 - Unspecified abdominal pain Status: Acute Assessment and Plan: Patient complains of left flank pain CVA tenderness CT shows possible ileus No BM in few days Miralax and Dulcolax started Add suppository to facilitate a BM WBC trending down 7.0 today (10) Elevated troponin: Code(s): R77.8 - Other specified abnormalities of plasma proteins Status: Acute Assessment and Plan: Slightly elevated Troponin peaked at 0.126 EKG sinus tach possible a flutter Tele monitor- SR 80 Trend down Echo pending BNP 1400 Most likely to be from the elevated BNP, cardiac arrhythmia changes,
[2020-12-08] MEDS: METOPROLOL TARTRATE 50 MG TAB PO ×2 (09:16→21:37)
[2020-12-08] MEDS: polyethylene glycoL 3350 17 GM POWD.PACK PO (09:16)
[2020-12-08] MEDS: amLODIPine BESYLATE 2.5 MG TABLET PO (09:17)
[2020-12-08] MEDS: ENOXAPARIN 40 MG/0.4 ML SYRINGE SUB-Q (09:17)
[2020-12-08] MEDS: GABAPENTIN 100 MG CAPSULE PO ×3 (09:17→16:19)
[2020-12-08] MEDS: BISACODYL 5 MG TABLET EC 10 MG PO (09:22)
[2020-12-08] MEDS: FUROSEMIDE INJ 40 MG/4 ML VIAL 20 MG IV PUSH (09:22)
[2020-12-08] MEDS: BISACODYL 10 MG SUPPOSITORY RECTAL ×2 (09:22→21:37)
[2020-12-08 11:48] LABS: Glucose Point of Care 181 mg/dl (65-105)
--- NOTE | 2020-12-08 13:32 | PCPTNOTE ---
attempted PT eval, pt sleeping at this time.
[2020-12-08 17:37] LABS: Glucose Point of Care 176 mg/dl (65-105)
[2020-12-08] MEDS: MELATONIN 5 MG TABLET PO (21:37)
[2020-12-08 21:53] LABS: Glucose Point of Care 203 mg/dl (65-105)
[2020-12-09] VITALS (13 sets, daily range): BP systolic 125–172; BP diastolic 73–92; PULSE 63–89; RESP 16–20; TEMP 35.6–37.1; O2SAT 96–100
--- NOTE | 2020-12-09 02:39 | PC.NURSE ---
Pt set bed alarm off at approx 0145 and was kicking her way out of bed. Pt tried to crawl on the floor. RN and PROJECT DEVELOPMENT COORDINATOR staff assisted pt to the bedside commode. Pt had an incontinent episode of large stool. Pt confused and uncooperative. 3+ staff, gait belt and walker used to assist pt back to bed. light industrial supervisor Shirley present during encounter and assisted staff.
[2020-12-09 07:45] LABS: Basophils Percent Auto 0.7 % (0.2-1.2); Eosinophils Absolute Auto 0.2 K/mm3 (0-0.3); Eosinophils Percent Auto 2.5 % (0-4.4); Hematocrit 36.3 % (37.0-47.0); Hemoglobin 11.8 g/dL (12.0-15.0); Immature Granulocyte Absolute 0.03 K/mm3 (0.00-0.031); Immature Granulocyte Percent A 0.5 % (0-0.5); Lymphocytes Absolute Auto 2.39 K/mm3 (0.9-3.2); Lymphocytes Percent Auto 40.2 % (18.3-44.2); Mean Corpuscular HGB Conc 32.5 g/dl (32-36); Mean Corpuscular Hemoglobin 26.9 pg (26-34); Mean Corpuscular Volume 82.7 fl (80-100); Mean Platelet Volume 10.5 fl (7.4-10.4); Monocytes Absolute Auto 0.6 K/mm3 (0.1-0.6); Monocytes Percent Auto 9.7 % (2.6-8.5); Neutrophils Absolute Auto 2.8 K/mm3 (1.3-6.7); Neutrophils Percent Auto 46.4 % (45.5-73.1); Platelet Count Result 202 k/mm3 (150-375); Red Blood Count 4.39 M/mm3 (4.2-5.4); Red Cell Distribution Width 14.4 % (11.5-14.5)
[2020-12-09 07:51] LABS: Glucose Point of Care 111 mg/dl (65-105)
[2020-12-09 07:54] LABS: Alanine Aminotransferase 37 U/L (4-35); Albumin Level 3.7 g/dL (3.5-5.1); Alkaline Phosphatase 70 U/L (38-126); Anion Gap 7 mmol/L (8-16); Aspartate Amino Transferase 40 U/L (14-36); Bilirubin,Total 0.4 mg/dL (0.2-1.3); Blood Urea Nitrogen 11 mg/dL (7-17); Calcium 8.7 mg/dL (8.4-10.2); Carbon Dioxide 30 mmol/L (22-30); Chloride 108 mmol/L (98-107); Estimated CRCL calculation 60 ml/min; Estimated Glomerular Filt Rate > 60; Glucose 111 mg/dL (65-105); Potassium 3.6 mmol/L (3.4-5.0); Sodium 145 mmol/L (137-145)
[2020-12-09] MEDS: amLODIPine BESYLATE 2.5 MG TABLET PO (08:42)
[2020-12-09] MEDS: GABAPENTIN 100 MG CAPSULE PO ×3 (08:42→17:50)
[2020-12-09] MEDS: BISACODYL 5 MG TABLET EC 10 MG PO (08:42)
[2020-12-09] MEDS: METOPROLOL TARTRATE 50 MG TAB PO ×2 (08:42→20:20)
[2020-12-09] MEDS: ENOXAPARIN 40 MG/0.4 ML SYRINGE SUB-Q (08:42)
[2020-12-09] MEDS: polyethylene glycoL 3350 17 GM POWD.PACK PO (08:43)
[2020-12-09 11:57] LABS: Glucose Point of Care 163 mg/dl (65-105)
[2020-12-09 17:16] LABS: Glucose Point of Care 129 mg/dl (65-105)
[2020-12-09] MEDS: MELATONIN 5 MG TABLET PO (20:20)
[2020-12-09 20:36] LABS: Glucose Point of Care 226 mg/dl (65-105)
[2020-12-10 04:00] VITALS: BP 158/79; PULSE 82; RESP 18; TEMP 37.1; O2SAT 96
[2020-12-10] MEDS: BISACODYL 5 MG TABLET EC 10 MG PO (08:24)
[2020-12-10] MEDS: GABAPENTIN 100 MG CAPSULE PO ×2 (08:24→13:30)
[2020-12-10 08:25] VITALS: PULSE 78
[2020-12-10] MEDS: METOPROLOL TARTRATE 50 MG TAB PO (08:25)
[2020-12-10] MEDS: polyethylene glycoL 3350 17 GM POWD.PACK PO (08:25)
[2020-12-10] MEDS: amLODIPine BESYLATE 2.5 MG TABLET PO (08:25)
[2020-12-10 08:51] LABS: Glucose Point of Care 125 mg/dl (65-105)
[2020-12-10 11:53] LABS: Glucose Point of Care 194 mg/dl (65-105)
[2020-12-10 12:00] VITALS: BP 146/81; PULSE 64; RESP 16; TEMP 36; O2SAT 100
--- NOTE | 2020-12-10 16:55 | PM.DS ---
DS: Admitting Diagnosis Admitting Diagnosis Admitting Diagnosis: Confusion DS: Discharge Diagnosis Discharge Diagnosis (1) Acute UTI: Code(s): N39.0 - Urinary tract infection, site not specified Status: Acute Assessment and Plan: The patient is an 85 year old woman with history of HTN, peripheral neuropathy, diabetes, who presented to the ER with confusion, weakness, chills, flank pain, abdominal pain for the last few days. Initial vitals shows fever 38.3 C, tachycardia 143 bpm, BP elevated 145/85, normal oxygenation and respiratory rate. Initial labs showed normal CBC with diff, troponin slightly elevated at 0.035, TSH normal. UA showing positive nitrites, Leuk Est 2+, WBC 51-75 and 1+ bacteria concerning for UTI. CT brain obtained due to confusion showing Cerebral atherosclerosis and chronic small vessel ischemic changes of cerebral white matter. Cerebral and cerebellar atrophy. No acute intracranial finding. CXR showing Left perihilar and bilateral lower lung infiltrates. CT Abd/Pelvis showing Cardiomegaly. Nondilated fluid containing small bowel and occasional small bowel air-fluid levels, which may be secondary to enteritis or mild adynamic ileus; no bowel obstruction or free air is detected. Consider correlation with serum lactic acid to exclude ischemic bowel. Lactic acid was normal at 1.1. The patient was admitted into the hospital for UTI and started on IV antibiotics. Patients urinalysis showed klebsiella pneumoniae with sensitivities to IV Ceftriaxone. She was discharged to continue on PO Antibiotics for a few more days and follow up with Primary Care Provider. EKG due to tachycardia showed Sinus tachycardia possible atrial flutter. Echocardiogram was ordered showing mild systolic dysfunction with EF 40-45%, moderate LVH, diastolic grade I dysfunction. The patient was started on Metoprolol Tartrate 50 mg BID which controlled her heart rate well. Due to systolic dysfunction, she was started on Lisinopril 2.5 mg and Metoprolol Succinate 100 mg daily. She needs to follow up with her PCP within 1 week. Discussed the need for an Event Monitor or Stripping Machine Operator after discharge for further evaluation and rule out atrial flutter. Rate was controlled on Metoprolol and no signs of atrial flutter on telemetry. Told to monitor blood pressure at home. Discussed with the patients son, Gaston Crandall, who understands and agrees with the plan. All questions answered. (2) Hypertension: Qualifiers: Hypertension type: essential hypertension Qualified Code(s): I10 - Essential (primary) hypertension Code(s): I10 - Essential (primary) hypertension Status: Acute (3) Diabetes 1.5, managed as type 2: Code(s): E13.9 - Other specified diabetes mellitus without complications Status: Acute Assessment and Plan: Continue metformin (4) Peripheral neuropathy: Qualifiers: Peripheral neuropathy type: polyneuropathy, unspecified Qualified Code(s): G62.9 - Polyneuropathy, unspecified Code(s): G62.9 - Polyneuropathy, unspecified Status: Acute Assessment and Plan: Continue home Gabapentin 100mg PO TID (5) Anxiety: Code(s): F41.9 - Anxiety disorder, unspecified Status: Acute (6) Constipation: Qualifiers: Constipation type: unspecified constipation type Qualified Code(s): K59.00 - Constipation, unspecified Code(s): K59.00 - Constipation, unspecified Status: Acute Assessment and Plan: She had a good bowel movement and feeling much better. (7) Atelectasis, bilateral: Code(s): J98.11 - Atelectasis Status: Acute (8) Cardiac arrhythmia: Qualifiers: Arrhythmia type: supraventricular tachycardia Qualified Code(s): I47.1 - Supraventricular tachycardia Code(s): I49.9 - Cardiac arrhythmia, unspecifie
== END 2020-12-10 18:18 | disposition home or self-care (01) | DRG 463 ==
LOC: ANHED 12-06 00:32 → ANH2MED 12-08 06:21
PROVIDERS: Internal Medicine; Nurse Practitioner; Admitting Provider Internal Medicine; Emergency Provider Emergency Medicine; PCP Family Medicine; Visit Provider Physician Assistant
DX: N39.0 Urinary tract infection, site not specified (principal); B96.1 Klebsiella pneumoniae [K. pneumoniae] as the cause of diseases classified elsewhere; E13.42 Other specified diabetes mellitus with diabetic polyneuropathy; I11.0 Hypertensive heart disease with heart failure; I50.20 Unspecified systolic (congestive) heart failure; J98.11 Atelectasis; F03.90 Unspecified dementia, unspecified severity, without behavioral disturbance, psychotic disturbance, mood disturbance, and anxiety; I47.1 Supraventricular tachycardia; R77.8 Other specified abnormalities of plasma proteins; R10.32 Left lower quadrant pain; K59.00 Constipation, unspecified; F41.9 Anxiety disorder, unspecified; Z79.899 Other long term (current) drug therapy
CPT/HCPCS: 36415; 36600; 51701; 70450; 71045; 71250; 74176; 74177; 80048; 80053; 81001; 82805; 82948; 83605; 83690; 83735; 83880; 84443; 84484; 85025; 85027; 87040; 87077; 87086; 87088; 87186; 93005; 93306; 96361; 96365; 96367; 96375; 97110; 97161; 97165; 97530; 97535; 99285; A9270; J0131; J0360; J0456; J0696; J1650; J1940; J2405; J7030; Q9967

== ENCOUNTER 2021-04-15 10:33 | Outpatient (CLI) | payer SELFPAY ==
[2021-04-15 11:16] LABS: Anion Gap 6 mmol/L (8-16); Blood Urea Nitrogen 16 mg/dL (7-17); Calcium 9.5 mg/dL (8.4-10.2); Carbon Dioxide 33 mmol/L (22-30); Chloride 103 mmol/L (98-107); Estimated Glomerular Filt Rate > 60; Glucose 96 mg/dL (65-110); Sodium 142 mmol/L (137-145)
== END 2021-04-15 10:34 | disposition home or self-care (01) ==
LOC: ANHLAB 10:37
DX: I42.9 Cardiomyopathy, unspecified (principal)
CPT/HCPCS: 36415; 80048